=== PATIENT | male | born 2000 | race Caucasian/White ===

== ENCOUNTER 2021-06-28 08:13 | Emergency (ER) | payer SELFPAY ==
[~2021-06-28] VITALS: Ht 185.4 cm; Wt 70.8 kg
--- NOTE | 2021-06-28 12:27 | REP ---
INDICATION: chronic headaches, memory disturbance. COMPARISON: None. TECHNIQUE: 5 x 5 mm contiguous transaxial sections were obtained using helical technique from the skull base to the cerebral convexities without intravenous contrast FINDINGS: The ventricles and sulci are consistent with the patient's age. There are no extra-axial fluid collections. There is no mass effect. The deep cerebral white matter is consistent with the patient's age. The orbital and petrous structures, cerebellopontine angles, and posterior fossa are unremarkable. The sella turcica, cavernous, and paracavernous structures are essentially unremarkable. The visualized portions of the paranasal sinuses and mastoid air cells are clear. Images of the skull base show no gross abnormality. IMPRESSION: Essentially unremarkable CT examination of the brain. Consider follow-up MRI due to the patient's complaint of chronic symptoms <Electronically signed by Jose Coyne > 06/28/21 [id number]
[2021-06-28] MEDS ORDERED: KETOROLAC 30 MG/ML 1ML VIAL IM ONE (12:40)
[2021-06-28] MEDS ORDERED: KETO10TAB PO (13:29)
[2021-06-28] MEDS ORDERED: TOPA1TAB PO (13:32)
[2021-06-28 14:07] VITALS: BP 115/72
== END 2021-06-28 14:17 | disposition home or self-care (01) ==
LOC: M ED 08:13
DX: R51.9 Headache, unspecified (principal); R41.3 Other amnesia
CPT/HCPCS: 70450; 96372; 99283; J1885

== ENCOUNTER 2021-07-02 09:11 | Emergency (ER) | payer OTHER, SELFPAY ==
[~2021-07-02] VITALS: Ht 185.4 cm; Wt 75.0 kg
[~2021-07-02 09:11] MED LIST: KETO10TAB PO; TOPA1TAB PO
[2021-07-02] MEDS ORDERED: NS 1,000 ML IV ONE (11:50)
[2021-07-02] MEDS ORDERED: diphenhydrAMINE 50MG/ML VIAL (J1200) IV ONE (11:50)
[2021-07-02] MEDS ORDERED: METOCLOPRAMIDE INJ 10MG/2ML VIAL (J2765 PER 1) IV ONE (11:50)
[2021-07-02] MEDS ORDERED: ACETAMINOPHEN 500 MG TAB PO ONE (11:50)
[2021-07-02] MEDS ORDERED: KETOROLAC 30 MG/ML 1ML VIAL IV ONE (11:50)
[2021-07-02] MEDS ORDERED: TOPIRAMATE (TopAMAX) 25 MG TAB PO ONE (12:00)
[2021-07-02 13:14] LABS: BASO % 0.6 % (0.0-1.0); EOS # 0.1 10^3/uL (0.0-0.5); HEMATOCRIT 48.1 % (42.0-52.0); HEMOGLOBIN 15.7 g/dl (13.5-17.5); LYMPH # 2.1 10^3/uL (1.5-5.0); LYMPH % 39.5 % (24.0-44.0); MEAN CORPUSCULAR HEMOGLOBIN 29.3 pg (27.0-33.0); MEAN CORPUSCULAR HGB CONC 32.6 g/dl (32.0-36.5); MEAN CORPUSCULAR VOLUME 89.9 fl (80.0-96.0); MONO # 0.6 10^3/uL (0.0-0.8); MONO % 10.4 % (2.0-8.0); NEUTROPHILS # 2.6 10^3/uL (1.5-8.5); NEUTROPHILS % 47.3 % (36.0-66.0); PLATELET COUNT, AUTOMATED 165 10^3/uL (150-450); RED BLOOD COUNT 5.35 10^6/uL (4.30-6.10); WHITE BLOOD COUNT 5.4 10^3/uL (4.0-10.0)
[2021-07-02 13:33] LABS: BLOOD UREA NITROGEN 12 MG/DL (7-18); CALCIUM LEVEL 9.6 MG/DL (8.5-10.1); CARBON DIOXIDE LEVEL 29 MEQ/L (21-32); CHLORIDE LEVEL 108 MEQ/L (98-107); CREATININE FOR GFR 1.04 MG/DL (0.70-1.30); GLOMERULAR FILTRATION RATE > 60.0 (>60); GLUCOSE, FASTING 87 MG/DL (70-100); POTASSIUM SERUM 3.7 MEQ/L (3.5-5.1); SODIUM LEVEL 141 MEQ/L (136-145)
--- NOTE | 2021-07-02 13:43 | REPVR ---
PROCEDURE INFORMATION: Exam: MR Head Without Contrast Exam date and time: 07/02/2021 12:28 PM Age: 21 years old Clinical indication: Pain; Headache not specified; Additional info: Headaches x5 months TECHNIQUE: Imaging protocol: MR of the head without contrast. COMPARISON: CT Head without contrast 06/28/2021 12:00 PM FINDINGS: Brain: No abnormal areas of signal intensity are seen. Diffusion images are normal. No evidence of acute infarction. No evidence of acute intracranial hemorrhage. No extra-axial fluid collections. Ventricles and cerebrospinal fluid spaces are normal in size and configuration for the patient's age. There is no evidence of mass-effect or midline shift. Flow voids of the [place] and major cerebral vascular structures appear intact. Craniocervical junction appears unremarkable, with normal position of cerebellar tonsils and no evidence of Chiari I malformation. Cerebral ventricles: Normal. No ventriculomegaly. Bones/joints: Unremarkable as visualized. Paranasal sinuses: There are maxillary sinus retention cysts or polyps. Mastoid air cells: No significant mastoid effusion. Orbital cavity: Unremarkable. Soft tissues: Unremarkable as visualized. IMPRESSION: Unremarkable brain MRI for age. Electronically signed by: Porsha Red On 07/02/2021 13:42:38 PM
[2021-07-02] MEDS ORDERED: TOPA50TA8 PO ×2 (15:32)
[2021-07-02 15:38] VITALS: BP 131/84
== END 2021-07-02 15:48 | disposition home or self-care (01) ==
LOC: M ED 09:11
DX: G43.909 Migraine, unspecified, not intractable, without status migrainosus (principal); Z79.899 Other long term (current) drug therapy
CPT/HCPCS: 70551; 80048; 85025; 96374; 96375; 99284; J1200; J1885; J2765

== ENCOUNTER 2021-07-09 08:47 | Emergency (ER) | payer OTHER ==
[~2021-07-09] VITALS: Ht 185.4 cm; Wt 71.7 kg
[~2021-07-09 08:47] MED LIST changes: +TOPA50TA8 PO
[2021-07-09] MEDS ORDERED: METOCLOPRAMIDE INJ 10MG/2ML VIAL (J2765 PER 1) IV ONE (12:45)
[2021-07-09] MEDS ORDERED: diphenhydrAMINE 50MG/ML VIAL (J1200) IV ONE (12:45)
[2021-07-09] MEDS ORDERED: ACETAMINOPHEN 500 MG TAB PO ONE (12:45)
[2021-07-09] MEDS ORDERED: NS 1,000 ML IV ONE (12:45)
[2021-07-09 13:10] LABS: BASO # 0.1 10^3/uL (0.0-0.2); EOS # 0.1 10^3/uL (0.0-0.5); EOS % 1.4 % (0.0-3.0); HEMATOCRIT 46.3 % (42.0-52.0); HEMOGLOBIN 15.5 g/dl (13.5-17.5); LYMPH % 40.2 % (24.0-44.0); MEAN CORPUSCULAR HEMOGLOBIN 29.5 pg (27.0-33.0); MEAN CORPUSCULAR HGB CONC 33.5 g/dl (32.0-36.5); MEAN CORPUSCULAR VOLUME 88.2 fl (80.0-96.0); MONO # 0.5 10^3/uL (0.0-0.8); MONO % 9.3 % (2.0-8.0); NEUTROPHILS # 2.4 10^3/uL (1.5-8.5); NEUTROPHILS % 47.9 % (36.0-66.0); PLATELET COUNT, AUTOMATED 170 10^3/uL (150-450); RED BLOOD COUNT 5.25 10^6/uL (4.30-6.10); WHITE BLOOD COUNT 5.1 10^3/uL (4.0-10.0)
[2021-07-09 13:52] LABS: BLOOD UREA NITROGEN 13 MG/DL (7-18); CARBON DIOXIDE LEVEL 29 MEQ/L (21-32); CHLORIDE LEVEL 108 MEQ/L (98-107); CREATININE FOR GFR 0.98 MG/DL (0.70-1.30); FREE T4 1.06 NG/DL (0.76-1.46); GLOMERULAR FILTRATION RATE > 60.0 (>60); GLUCOSE, FASTING 81 MG/DL (70-100); MAGNESIUM LEVEL 2.1 MG/DL (1.8-2.4); POTASSIUM SERUM 3.8 MEQ/L (3.5-5.1); SODIUM LEVEL 140 MEQ/L (136-145)
[2021-07-09 14:30] LABS: ERYTHROCYTE SEDIMENTATION RATE 1 mm/hr (0-15)
[2021-07-09 15:22] VITALS: BP 125/75
[2021-07-09] MEDS ORDERED: TOPA50TA8 PO (15:22)
[2021-07-10 15:09] LABS: Lyme Disease IgG/IgM Antibodie <0.91 ISR (0.00-0.90); Lyme Disease IgM Ab Quantitati <0.80 index (0.00-0.79)
== END 2021-07-09 15:51 | disposition home or self-care (01) ==
LOC: M ED 08:47 → EDBD 08:47 → M ED 15:51
DX: R51.9 Headache, unspecified (principal); Z86.16 Personal history of COVID-19; Z79.899 Other long term (current) drug therapy
CPT/HCPCS: 80048; 83735; 84439; 84443; 85025; 85652; 86140; 86617; 96361; 96374; 96375; 99284; J1200; J2765

== ENCOUNTER 2022-03-05 18:40 | Emergency (ER) | payer OTHER ==
[~2022-03-05] VITALS: Ht 188 cm; Wt 75.0 kg
[2022-03-05 20:47] VITALS: BP 134/81
[2022-03-05 21:26] LABS: AMPHETAMINES LEVEL URINE NEGATIVE (NEGATIVE); BARBITURATES URINE NEGATIVE (NEGATIVE); BENZODIAZEPINES URINE NEGATIVE (NEGATIVE); CANNABINOIDS URINE NEGATIVE (NEGATIVE); COCAINE METABOLITE URINE NEGATIVE (NEGATIVE); METHADONE URINE NEGATIVE (NEGATIVE); OPIATES URINE NEGATIVE (NEGATIVE); PHENCYCLIDINE URINE NEGATIVE (NEGATIVE)
== END 2022-03-05 22:52 | disposition home or self-care (01) ==
LOC: M ED 18:40
DX: S06.0X1A Concussion with loss of consciousness of 30 minutes or less, initial encounter (principal); S01.511A Laceration without foreign body of lip, initial encounter; R55 Syncope and collapse; Y92.9 Unspecified place or not applicable; Y93.9 Activity, unspecified; Y99.9 Unspecified external cause status